=== PATIENT | male | born 1985 | race Caucasian/White ===

== ENCOUNTER 2017-04-16 11:19 | Inpatient (IN) | payer OTHER ==
[2017-04-16 11:43] LABS: APPEARANCE,URINE CLEAR; BILIRUBIN,URINE NEGATIVE (NEGATIVE); GLUCOSE, URINE >=500 mg/dL (NEGATIVE); KETONES,URINE 20 mg/dL (NEGATIVE); LEUKOCYTE ESTERASE,URINE NEGATIVE (NEGATIVE); NITRITE,URINE NEGATIVE (NEGATIVE); PROTEIN,URINE NEGATIVE (NEGATIVE); URINE SPECIFIC GRAVITY 1.022; UROBILINOGEN,URINE NEGATIVE mg/dL (<2.0)
[2017-04-16] MEDS ORDERED: NORMAL SALINE 1000 ML 1,000 ML IV ONE ×3 (11:50→14:32)
--- NOTE | 2017-04-16 11:56 | ER Document Report ---
ED Medical Screen (RME) - General Chief Complaint: Nausea/Vomiting Stated Complaint: CHEST PAIN Time Seen by Provider: 04/16/17 11:38 Mode of Arrival: Wheelchair Information source: Patient, Parent Notes: This is a 31-year-old male with multiple medical problems who presents with nausea vomiting and abdominal pain. He states that he is concerned he may be in DKA. He does have a history of insulin dependent diabetes. He also has a prior history of cardiomyopathy and was once on a cardiac transplant list with an EF of 13%. However he states that this has improved in his last EF per his report was 45% about 6 months ago. He has recently moved here and does not have a primary care physician. He reports nausea and vomiting for the past 4 days. His blood sugar has been high at home. He called the [facility] in [place] today and will instructed to present to the ER. I have greeted and performed a rapid initial assessment of this patient. A comprehensive ED assessment and evaluation of the patient, analysis of test results and completion of the medical decision making process will be conducted by additional ED providers. TRAVEL OUTSIDE OF THE [place] IN LAST 30 DAYS: No - Related Data Allergies/Adverse Reactions: No Known Allergies Allergy (Verified 04/16/17 11:23) Past Medical History Renal/ Medical History: Denies: Hx Peritoneal Dialysis Physical Exam - Vital signs Vitals: Temp Pulse Resp BP Pulse Ox 97.6 F 121 H 18 107/77 100 04/16/17 11:23 04/16/17 11:23 04/16/17 11:23 04/16/17 11:23 04/16/17 11:23 - General Notes: somewhat ill-appearing, conversant, - Respiratory Respiratory status: No respiratory distress Breath sounds: Normal. No: Rales, Rhonchi, Wheezing - Cardiovascular Rhythm: Tachycardia Heart sounds: S1 appreciated, S2 appreciated Murmur: No Course - Vital Signs Vital signs: Temp Pulse Resp BP Pulse Ox 97.6 F 121 H 18 107/77 100 04/16/17 11:23 04/16/17 11:23 04/16/17 11:23 04/16/17 11:23 04/16/17 11:23 - Laboratory Laboratory results interpreted by me: 04/16/17 11:25 Urine Glucose (UA) >=500 H Urine Ketones 20 H
[2017-04-16 12:35] LABS: VENOUS BLOOD BASE EXCESS 9.2 mmol/L; VENOUS BLOOD HCO3 34.9 mmol/L (20-32); VENOUS BLOOD PH 7.48 (7.30-7.42)
[2017-04-16 12:44] LABS: ABSOLUTE BASOPHILS # (AUTO) 0.1 10^3/uL (0.0-0.2); ABSOLUTE LYMPHOCYTES (AUTO) 1.6 10^3/uL (0.5-4.7); ABSOLUTE MONOCYTES (AUTO) 1.5 10^3/uL (0.1-1.4); ABSOLUTE NEUT (AUTO) 10.9 10^3/uL (1.7-8.2); BASOPHILS % (AUTO) 0.5 % (0-2); EOSINOPHILS % (AUTO) 0.1 % (0-6); HEMATOCRIT 43.4 % (37.9-51.0); HEMOGLOBIN 14.8 g/dL (13.5-17.0); LYMPHOCYTES % (AUTO) 11.6 % (13-45); MEAN CORPUSCULAR HEMOGLOBIN 31.2 pg (27.0-33.4); MEAN CORPUSCULAR HGB CONC 34.2 g/dL (32.0-36.0); MEAN CORPUSCULAR VOLUME 91 fl (80-97); MONOCYTES % (AUTO) 10.8 % (3-13); RED BLOOD COUNT 4.77 10^6/uL (4.35-5.55); RED CELL DISTRIBUTION WIDTH 12.5 % (11.5-14.0); WHITE BLOOD COUNT 14.1 10^3/uL (4.0-10.5)
--- NOTE | 2017-04-16 12:51 | ER Document Report ---
ED General - General Chief Complaint: Nausea/Vomiting Stated Complaint: CHEST PAIN Time Seen by Provider: 04/16/17 11:38 Mode of Arrival: Wheelchair Notes: Patient says he has been vomiting since Tuesday. History of insulin-dependent diabetes. Has been able to eat some chicken broth and crackers. He still vomiting today. Had a normal bowel movement this morning, however. Has pain in the right side of his abdomen since , but has had this previously. Denies fever, but has had chills. No prior abdominal surgeries. Patient has a history of congestive heart failure and is on carvedilol and lisinopril. Denies chest pain. TRAVEL OUTSIDE OF THE [place] IN LAST 30 DAYS: No - Related Data Allergies/Adverse Reactions: No Known Allergies Allergy (Verified 04/16/17 11:23) Past Medical History - General Information source: Patient, Parent - Social History Smoking Status: Unknown if Ever Smoked Cigarette use (# per day): No Chew tobacco use (# tins/day): No Frequency of alcohol use: None Family History: Reviewed & Not Pertinent Patient has suicidal ideation: No Patient has homicidal ideation: No - Past Medical History Cardiac Medical History: Reports: Hx Congestive Heart Failure Endocrine Medical History: Reports: Hx Diabetes Mellitus Type 1 Surgical Hx: Negative - Immunizations Hx Diphtheria, Pertussis, Tetanus Vaccination: Yes Review of Systems - Review of Systems Notes: REVIEW OF SYSTEMS: CONSTITUTIONAL : Denies fever but has had chills. EENT: Denies eye, ear, nose or mouth or throat pain or other symptoms. CARDIOVASCULAR: Denies chest pain. RESPIRATORY: Denies cough, chest congestion, or shortness of breath. GASTROINTESTINAL: Patient says he has some pain to the right side of his abdomen along with nausea and vomiting. No diarrhea. GENITOURINARY: Denies difficulty or painful urinating, blood in urine. MUSCULOSKELETAL: Denies back or neck pain. Denies joint pain or swelling. SKIN: Denies rash or skin lesions. NEUROLOGICAL: Denies LOC or altered mental status. Denies headache. Denies sensory loss or motor deficits. ALL OTHER SYSTEMS REVIEWED AND NEGATIVE. Physical Exam - Vital signs Vitals: Temp Pulse Resp BP Pulse Ox 97.6 F 121 H 18 107/77 100 04/16/17 11:23 04/16/17 11:23 04/16/17 11:23 04/16/17 11:23 04/16/17 11:23 Interpretation: Tachycardic - Notes Notes: PHYSICAL EXAMINATION: GENERAL: Well-appearing, in no acute distress. Heart rate 72 at bedside by me. By EKG, patient's heart rate is 80. HEAD: Atraumatic, normocephalic. ENT: oropharynx clear without exudates. Moist mucous membranes. NECK: Normal range of motion, supple. LUNGS: Breath sounds clear and equal bilaterally. HEART: Regular rate and rhythm without murmurs. ABDOMEN: Soft, nontender. Not really any tenderness in the right lower quadrant over McBurney's point. No guarding or rebound. No masses felt. Bowel sounds are present. BACK: No tenderness throughout entire back. EXTREMITIES: Normal range of motion without pain. NEUROLOGICAL: Normal speech, normal gait. Normal sensory, motor, and reflex exams. Awake, alert, and oriented x3. Cranial nerves normal. PSYCH: Normal mood, normal affect. SKIN: Warm, dry, no rashes. Course - Re-evaluation Re-evalutation: 04/16/17 14:21 Patient received 1 bolus of 1 L of normal saline followed by a second liter at 250 mL/h. Abnormal sodium and chloride and creatinine and BUN noted. Spoke with hospitalist on duty, Dr. Ferraro, who will admit the patient to telemetry. - Vital Signs Vital signs: Temp Pulse Resp BP Pulse Ox 98.5 F 93 18 119/85 100 04/16/17 16:58 04/16/17 16:58 04/16/17 16:58 04/16/17 16:58 04/16/17 16:58 - Laboratory Result Diagrams: 04/16/17 12:37 04/16/17 12:37 Laboratory results interpreted by me: 04/16/17 04/16/17 04/16/17 11:25 11:40 12:00 WBC Lymphocytes % Absolute Neutrophils Absolute Monocytes VBG pH 7.48 H VBG HCO3 34.9 H Sodium Chloride Anion Gap BUN Creatinine Est GFR ( Amer) Est GFR (Non-Af Amer) Glucose POC Glucose 344 H Urine Glucose (UA) >=500 H Urine Ketones 20 H 04/16/17 04/16/17 04/16/17 12:37 12:37 14:30 WBC 14.1 H Lymphocytes % 11.6 L Absolute Neutrophils 10.9 H Absolute Monocytes 1.5 H VBG pH VBG HCO3 Sodium 118.9 L* Chloride 70 L Anion Gap 20 H BUN 53 H Creatinine 1.69 H Est GFR ( Amer) 57 L Est GFR (Non-Af Amer) 47 L Glucose 361 H POC Glucose 328 H Urine Glucose (UA) Urine Ketones - Diagnostic Test Radiology reviewed: Image reviewed, Reports reviewed - Chest x-ray read by radiology showing left upper lobe changes consistent with prior infections or inflammatory process. Heart size is normal. - EKG Interpretation by Ne EKG shows normal: Sinus rhythm Rate: Normal Rhythm: NSR Additional EKG results interpreted by vt: 04/16/17 14:20 EKG shows no acute changes, only slight prolongation of the QT interval. Discharge - Discharge Clinical Impression: IDDM (insulin dependent diabetes mellitus), Hyponatremia, Renal insufficiency Vomiting Qualifiers: Vomiting type: unspecified Vomiting Intractability: unspecified Nausea presence : with nausea Qualified Code(s): R11.2 - Nausea with vomiting, unspecified Admitting Provider: Hospitalist Unit Admitted: Telemetry
[2017-04-16 13:07] LABS: ALANINE AMINOTRANSFERASE 28 U/L (21-72); ALBUMIN 4.5 g/dL (3.5-5.0); ALKALINE PHOSPHATASE 103 U/L (38-126); ASPARTATE AMINO TRANSFERASE 20 U/L (17-59); BILIRUBIN,DIRECT 0.4 mg/dL (0.0-0.4); BILIRUBIN,TOTAL 0.9 mg/dL (0.2-1.3); BLOOD UREA NITROGEN 53 mg/dL (7-20); CALCIUM 9.7 mg/dL (8.4-10.2); CARBON DIOXIDE 29 mmol/L (22-30); CHLORIDE 70 mmol/L (98-107); CREATININE RESULT 1.69 mg/dL (0.52-1.25); GLUCOSE 361 mg/dL (75-110); POTASSIUM 4.3 mmol/L (3.6-5.0)
--- NOTE | 2017-04-16 13:09 | RADIOLOGY REPORT (SQ) ---
EXAM DESCRIPTION: CHEST PA/LAT COMPLETED DATE/TIME: 04/16/2017 12:55 pm REASON FOR STUDY: vomiting, SOB, h/o CHF COMPARISON: None. EXAM PARAMETERS: NUMBER OF VIEWS: two views TECHNIQUE: Digital Frontal and Lateral radiographic views of the chest acquired. RADIATION DOSE: NA LIMITATIONS: none FINDINGS: LUNGS AND PLEURA: There appears be focal and 7 is change involving the left upper lobe. L ungs and pleural spaces otherwise clear. MEDIASTINUM AND HILAR STRUCTURES: No masses or contour abnormalities. HEART AND VASCULAR STRUCTURES: Heart normal size. No evidence for failure. BONES: No acute findings. HARDWARE: None in the chest. OTHER: No other significant finding. IMPRESSION: NO DEFINITE ACUTE CARDIOPULMONARY PROCESS. FOCAL EMPHYSEMATOUS CHANGE LEFT UPPER LOBE P RESUMABLY SEQUELA TO PRIOR INFECTIOUS/ INFLAMMATORY PROCESS. CORRELATE WITH CLINICAL HISTORY. TECHNICAL DOCUMENTATION: JOB ID: [id number] [employer]- All Rights Reserved
[2017-04-16 13:12] LABS: ANION GAP 20 (5-19)
[2017-04-16 13:13] LABS: SODIUM 118.9 mmol/L (137-145)
--- NOTE | 2017-04-16 15:30 | PDOC H&P ---
History of Present Illness Admission Date/PCP: 04/16/17 14:45 History of Present Illness: ERIN RM is a 31 year old white male with a past medical history significant for diabetes mellitus on long-term insulin, hypertension and congestive heart failure. He states that he is been throwing up since Tuesday. He does not recall being around anyone who has been sick. He states that he has had chronic nausea and vomiting for the last 1-2 years. He was seen for this in [place] at the [facility]. Ultimately he was referred out to the [facility] for further workup. The patient states he has a history of congestive heart failure with an EF of 19%. He was referred to [facility] medically optimized and given a LifeVest. He was then put on a heart transplant list. The workup there a diagnosis of heart failure but it is unknown to me as the underlying etiology. Patient states that eventually his EF increased and at last check it was 47%. He has been been able to come off of multiple medications. Fortunately he is left now with chronic nausea and vomiting that has not yet been worked up. He tells me that the [facility] was strict about what could be covered through insurance at the [facility]. Therefore his heart failure was worked up without evaluation of his chronic nausea and vomiting In the emergency room the patient's sodium was found to be 118 with a creatinine of 1.69 and blood sugar of 361. Given a liter of fluid and referred for admission. At the bedside the patient still feels nauseous and has recurrent belching. Past Medical History Cardiac Medical History: Reports: Congestive Heart Failure Endocrine Medical History: Reports: Diabetes Mellitus Type 1 Past Surgical History Past Surgical History: Reports: None Social History Information Source: Patient, Parent Smoking Status: Current Some Day Smoker Frequency of Alcohol Use: Occasional Drugs: Marijuana Hx Prescription Drug Abuse: No Past Social History Note: The patient is recently medically retired from the [employer] that he just graduated from college with a bachelor's degree in this. Smokes cigarettes a few times a year and uses marijuana about 2 times a week. He occasionally has wine he estimates about once a month. Fortunately the patient has been since December 2016. Family History Family History: Reviewed & Not Pertinent, Hypertension Parental Family History Reviewed: Yes Children Family History Reviewed: Yes Sibling(s) Family History Reviewed.: Yes Medication/Allergy Allergies/Adverse Reactions: No Known Allergies Allergy (Verified 04/16/17 11:23) Review of Systems Review of Systems: Systems is pertinent for that already mentioned in the HPI. In addition to this the patient has noted flakes of blood in his emesis. He also describes extreme of bowel habits to include diarrhea 1 day and extreme constipation the next. Denies fevers chills blood in the, urine blood in the stool, coughing up blood. He admits to weight loss when he is constantly vomiting. Physical Exam Vital Signs: Temp Pulse Resp BP Pulse Ox 97.6 F 121 H 23 H 107/77 97 04/16/17 11:23 04/16/17 11:23 04/16/17 13:33 04/16/17 11:23 04/16/17 13:33 Physical exam: In general: this a well-developed well-nourished appearing white male resting in bed currently in no acute distress HEENT: Normocephalic atraumatic. Trachea is midline. Sclera are anicteric. Mucous membranes. Heart: Regular rate and rhythm no murmurs rubs or gallops Lungs: Clear to auscultation bilaterally with equal rise and fall of the chest. Abdomen: Soft nontender nondistended. Active bowel sounds. Extremities: Clubbing cyanosis or edema. 2+ peripheral pulses. 5 out of 5 strength in the upper and lower extremities bilaterally. Neuro: Alert and oriented. Cranial nerves II through XII are specifically intact. Pupils are reactive. Results Impressions: Chest X-Ray 04/16/17 11:51 IMPRESSION: NO DEFINITE ACUTE CARDIOPULMONARY PROCESS. FOCAL EMPHYSEMATOUS CHANGE LEFT UPPER LOBE PRESUMABLY SEQUELA TO PRIOR INFECTIOUS/ INFLAMMATORY PROCESS. CORRELATE WITH CLINICAL HISTORY. Assessment & Plan - Diagnosis (1) Hyponatremia Plan: Hypovolemic hyponatremia. This is a result of prolonged nausea with vomiting. Continue normal saline solution resuscitation. Repeat chemistry in the morning (2) IDDM (insulin dependent diabetes mellitus) Plan: Controlled diabetes mellitus. The patient states his last hemoglobin A1c was 10. Insulin for now and monitor blood sugar checks. Adjust as appropriate (3) Vomiting Qualifiers: Vomiting type: unspecified Vomiting Intractability: unspecified Nausea presence: with nausea Qualified Code(s): R11.2 - Nausea with vomiting, unspecified Plan: Zofran as needed. I have concerns that this could be related to gastroparesis. Check a gastric outlet study. clear liquid diet. (4) Acute renal failure Plan: Secondary to dehydration. Continue resuscitative efforts. (5) Hypertension Plan: Lisinopril secondary to acute dehydration and renal failure. Coreg being verified. Resume as appropriate. - Time Time Spent: 30 to 50 Minutes - Inpatient Certification Medical Necessity: Need Close Monitoring Due to Risk of Patient Decompensation, Need For IV Fluids
[2017-04-16] MEDS ORDERED: ACETAMINOPHEN 650 MG SUPP.RECT PR PRN (15:31)
[2017-04-16] MEDS ORDERED: ONDANSETRON HCL INJ/PF 4 MG/2 ML SDV IV PRN (15:31)
[2017-04-16] MEDS ORDERED: GLUCAGON,HUMAN RECOMB 1 MG INJ IM PRN (15:40)
[2017-04-16] MEDS ORDERED: DEXTROSE 40% GEL 15 GM TUBE PO PRN ×2 (15:40)
[2017-04-16] MEDS ORDERED: DEXTROSE 50%-WATER 25 GM/50 ML DISP.SYRIN IV PRN ×2 (15:40)
[2017-04-16] MEDS ORDERED: PANTOPRAZOLE SODIUM 40 MG VIAL IV SCH (15:45)
[2017-04-16] MEDS ORDERED: FAMOTIDINE INJ/PF 20 MG/2 ML SDV IV ONE (16:00)
[2017-04-16] MEDS: METOCLOPRAMIDE HCL INJ/PF 10 MG/2 ML SDV IV SCH ×2 (17:21→21:33)
[2017-04-16] MEDS: POTASSI CL 20 MEQ/NS 1L 1,000 ML IV PRN (17:21)
[2017-04-16] MEDS: INSULIN REG, HUMAN 100 UNIT/ML 3 ML VIAL (PYX) SUBCUT PRN ×2 (17:33→21:33)
[2017-04-16] MEDS ORDERED: CARVEDILOL 6.25 MG TABLET PO SCH (21:15)
[2017-04-16] MEDS: TRAZODONE HCL 50 MG TABLET PO SCH (21:33)
[2017-04-16] MEDS: LISINOPRIL 10 MG TABLET PO SCH (23:20)
[2017-04-16] MEDS: INSULIN GLARGINE,HUM.REC.ANLOG 1,000 UNIT/10 ML UNIT SUBCUT SCH (23:21)
[2017-04-17] MEDS: POTASSI CL 20 MEQ/NS 1L 1,000 ML IV PRN ×2 (03:29→13:31)
[2017-04-17 05:19] LABS: ABSOLUTE MONOCYTES (AUTO) 1.1 10^3/uL (0.1-1.4); ABSOLUTE NEUT (AUTO) 5.3 10^3/uL (1.7-8.2); BASOPHILS % (AUTO) 0.1 % (0-2); EOSINOPHILS % (AUTO) 0.6 % (0-6); HEMATOCRIT 36.2 % (37.9-51.0); HGB HCT DIFFERENCE 1.3; LYMPHOCYTES % (AUTO) 24.1 % (13-45); MEAN CORPUSCULAR HEMOGLOBIN 31.3 pg (27.0-33.4); MEAN CORPUSCULAR HGB CONC 34.5 g/dL (32.0-36.0); MEAN CORPUSCULAR VOLUME 91 fl (80-97); MONOCYTES % (AUTO) 12.7 % (3-13); RED BLOOD COUNT 3.98 10^6/uL (4.35-5.55); RED CELL DISTRIBUTION WIDTH 12.7 % (11.5-14.0); SEGMENTED NEUTROPHILS % (AUTO) 62.5 % (42-78); WHITE BLOOD COUNT 8.5 10^3/uL (4.0-10.5)
[2017-04-17] MEDS: FAMOTIDINE INJ/PF 20 MG/2 ML SDV IV SCH ×2 (05:24→17:03)
[2017-04-17 05:35] LABS: HEMOGLOBIN 12.5 g/dL (13.5-17.0)
[2017-04-17 05:42] LABS: ANION GAP 11 (5-19); BLOOD UREA NITROGEN 36 mg/dL (7-20); CARBON DIOXIDE 27 mmol/L (22-30); CHLORIDE 88 mmol/L (98-107); CREATININE RESULT 1.27 mg/dL (0.52-1.25); GLUCOSE 223 mg/dL (75-110); MAGNESIUM 2.3 mg/dL (1.6-2.3); POTASSIUM 4.4 mmol/L (3.6-5.0); SODIUM 126.4 mmol/L (137-145)
[2017-04-17] MEDS: METOCLOPRAMIDE HCL INJ/PF 10 MG/2 ML SDV IV SCH ×4 (08:08→22:00)
[2017-04-17] MEDS: CARVEDILOL 6.25 MG TABLET PO SCH ×2 (08:08→17:03)
[2017-04-17] MEDS: LISINOPRIL 10 MG TABLET PO SCH ×2 (09:44→22:00)
[2017-04-17] MEDS ORDERED: (PENDING PHARMACY ID) (Lisinopril [Lisinopril] 20 MG) PO SCH (10:00)
--- NOTE | 2017-04-17 13:27 | PDOC PROGRESS REPORT ---
Subjective Progress Note for:: 04/17/17 Subjective:: This is a followup visit for intractable nausea and vomiting. The patient was seen at 0955 today. He said he was able to get some sleep overnight and only had one episode of vomiting this morning. He describes it as a small amount of emesis. He is tolerating clears but dosen't think he is ready to do more. Physical Exam Vital Signs: Temp Pulse Resp BP Pulse Ox 97.7 F 83 18 152/91 H 100 04/17/17 07:42 04/17/17 07:42 04/17/17 07:42 04/17/17 07:42 04/17/17 07:42 Intake & Output 04/16/17 04/17/17 04/18/17 06:59 06:59 06:59 Intake Total 1100 Balance 1100 Weight 70.2 kg Physical exam: In general: this a well-developed well-nourished appearing white male resting in bed currently in no acute distress Heart: Regular rate and rhythm no murmurs rubs or gallops Lungs: Clear to auscultation bilaterally with equal rise and fall of the chest. Abdomen: Soft nontender nondistended. Active bowel sounds. Extremities: Clubbing cyanosis or edema. 2+ peripheral pulses. Neuro: Alert and oriented. Cranial nerves II through XII are specifically intact. Results Laboratory Results: 04/17/17 04:44 04/17/17 04:44 04/17/17 04/17/17 04/17/17 04:44 04:44 04:44 WBC 8.5 RBC 3.98 L Hgb 12.5 L D Hct 36.2 L MCV 91 MCH 31.3 MCHC 34.5 RDW 12.7 Plt Count 211 Seg Neutrophils % 62.5 Lymphocytes % 24.1 Monocytes % 12.7 Eosinophils % 0.6 Basophils % 0.1 Absolute Neutrophils 5.3 Absolute Lymphocytes 2.0 Absolute Monocytes 1.1 Absolute Eosinophils 0.0 Absolute Basophils 0.0 Sodium 126.4 L Potassium 4.4 Chloride 88 L Carbon Dioxide 27 Anion Gap 11 BUN 36 H Creatinine 1.27 H Est GFR ( Amer) > 60 Est GFR (Non-Af Amer) > 60 Glucose 223 H Calcium 9.0 Magnesium 2.3 TSH 1.11 Impressions: Chest X-Ray 04/16/17 11:51 IMPRESSION: NO DEFINITE ACUTE CARDIOPULMONARY PROCESS. FOCAL EMPHYSEMATOUS CHANGE LEFT UPPER LOBE PRESUMABLY SEQUELA TO PRIOR INFECTIOUS/ INFLAMMATORY PROCESS. CORRELATE WITH CLINICAL HISTORY. Assessment & Plan - Diagnosis (1) Hyponatremia Plan: Hypovolemic hyponatremia. This is a result of prolonged nausea with vomiting. Continue normal saline solution resuscitation. Repeat chemistry in the morning. Currently his sodium is 125. (2) IDDM (insulin dependent diabetes mellitus) Plan: Uncontrolled diabetes mellitus. The patient states his last hemoglobin A1c was 10. Continue regular 5U insulin qAC. increase lantus to 30. Monitor (3) Vomiting Qualifiers: Vomiting type: unspecified Vomiting Intractability: unspecified Nausea presence: with nausea Qualified Code(s): R11.2 - Nausea with vomiting, unspecified Plan: Zofran as needed. I have concerns that this could be related to gastroparesis. Check a gastric outlet study. clear liquid diet. Continue Reglan scheduled (4) Acute renal failure Plan: Secondary to dehydration. Continue resuscitative efforts. Much improved. (5) Hypertension Plan: Continue Coreg and lisinopril for now. - Time Time Spent with patient: 15-24 minutes - Inpatient Certification Medical Necessity: Need For IV Fluids
[2017-04-17] MEDS: INSULIN REG, HUMAN 100 UNIT/ML 3 ML VIAL (PYX) SUBCUT SCH ×2 (13:28→17:00)
[2017-04-17] MEDS: INSULIN REG, HUMAN 100 UNIT/ML 3 ML VIAL (PYX) SUBCUT PRN ×3 (13:28→22:01)
[2017-04-17] MEDS: TRAZODONE HCL 50 MG TABLET PO SCH (22:00)
[2017-04-17] MEDS: INSULIN GLARGINE,HUM.REC.ANLOG 1,000 UNIT/10 ML UNIT SUBCUT SCH (22:01)
[2017-04-18] MEDS: POTASSI CL 20 MEQ/NS 1L 1,000 ML IV PRN (02:36)
[2017-04-18] MEDS: FAMOTIDINE INJ/PF 20 MG/2 ML SDV IV SCH ×2 (05:31→18:09)
[2017-04-18 06:38] LABS: ABSOLUTE EOSINOPHILS # (AUTO) 0.1 10^3/uL (0.0-0.6); ABSOLUTE LYMPHOCYTES (AUTO) 2.6 10^3/uL (0.5-4.7); ABSOLUTE MONOCYTES (AUTO) 0.8 10^3/uL (0.1-1.4); ABSOLUTE NEUT (AUTO) 3.9 10^3/uL (1.7-8.2); BASOPHILS % (AUTO) 0.1 % (0-2); EOSINOPHILS % (AUTO) 1.5 % (0-6); HEMATOCRIT 33.5 % (37.9-51.0); HEMOGLOBIN 11.5 g/dL (13.5-17.0); LYMPHOCYTES % (AUTO) 35.1 % (13-45); MEAN CORPUSCULAR HEMOGLOBIN 31.5 pg (27.0-33.4); MEAN CORPUSCULAR HGB CONC 34.3 g/dL (32.0-36.0); MEAN CORPUSCULAR VOLUME 92 fl (80-97); MONOCYTES % (AUTO) 10.2 % (3-13); RED BLOOD COUNT 3.65 10^6/uL (4.35-5.55); RED CELL DISTRIBUTION WIDTH 12.5 % (11.5-14.0); SEGMENTED NEUTROPHILS % (AUTO) 53.1 % (42-78); WHITE BLOOD COUNT 7.4 10^3/uL (4.0-10.5)
[2017-04-18 06:49] LABS: ANION GAP 9 (5-19); BLOOD UREA NITROGEN 23 mg/dL (7-20); CALCIUM 8.8 mg/dL (8.4-10.2); CARBON DIOXIDE 27 mmol/L (22-30); CHLORIDE 97 mmol/L (98-107); CREATININE RESULT 1.09 mg/dL (0.52-1.25); GLUCOSE 124 mg/dL (75-110); MAGNESIUM 2.2 mg/dL (1.6-2.3); SODIUM 132.7 mmol/L (137-145)
--- NOTE | 2017-04-18 09:48 | EKG REPORT ---
SEVERITY:- ABNORMAL ECG - SINUS RHYTHM PROLONGED QT INTERVAL : Confirmed by: Darryl Carmen 18-Apr-2017 09:47:30
[2017-04-18] MEDS: INSULIN REG, HUMAN 100 UNIT/ML 3 ML VIAL (PYX) SUBCUT SCH (14:27)
[2017-04-18] MEDS: CARVEDILOL 6.25 MG TABLET PO SCH (14:27)
[2017-04-18] MEDS: METOCLOPRAMIDE HCL INJ/PF 10 MG/2 ML SDV IV SCH ×2 (14:29→18:09)
[2017-04-18] MEDS: LISINOPRIL 10 MG TABLET PO SCH (14:41)
--- NOTE | 2017-04-18 15:52 | RADIOLOGY REPORT (SQ) ---
EXAM DESCRIPTION: NM GASTRIC EMPTYING STUDY COMPLETED DATE/TIME: 04/18/2017 1:29 pm REASON FOR STUDY: intractable vomiting COMPARISON: None. RADIONUCLIDE AND DOSE: 1.99 millicuries Tc-99m Sulfur Colloid. The route of agent administration: Oral. TECHNIQUE: Serial images acquired to 4 hours with each image recorded over a 30 minute time frame. I mage intensity values plotted with respect to time with linear regression algorithm. LIMITATIONS: None. FINDINGS: Patient was observed for 4 hours. Gastric emptying at 60 minutes was 16%. Gastric emptying at 90 minutes was 24%. Gastric emptying at 120 minutes was 32% Gastric emptying at 240 minutes was 64%. IMPRESSION: IMPAIRED GASTRIC EMPTYING. 24% EMPTYING AT 90 MINUTES AND 64% EMPTYING AT 240 MINUTES. TECHNICAL DOCUMENTATION: JOB ID: [id number] [employer]- All Rights Reserved
--- NOTE | 2017-04-18 18:02 | PDOC DISCHARGE SUMMARY ---
General - Admit/Disc Date/PCP Admission Date/Primary Care Provider: 04/16/17 15:31 Discharge Date: 04/18/17 - Discharge Diagnosis (1) Hyponatremia Summary: The patient's hyponatremia is largely due to hypovolemic hyponatremia. This is nearly resolved at discharge after copious IV fluids. (2) IDDM (insulin dependent diabetes mellitus) Summary: Hemoglobin A1c was greater than 11. Counseled as to management of his diabetes. Follow-up with his primary care provider next week. I recommended that he pursue use of an insulin pump to get him under better control. And to meet with an food handler. Adjustment in his Lantus to 31 units nightly as well as 5 units of regular insulin at mealtime and sliding scale insulin. Hold to continue to check his blood sugars before meals at bedtime, to record these measurements and take them with him to his next appointment. (3) Vomiting Summary: Greatly diminished. Much improved with the Reglan. Continue frequent small meals. (4) Acute renal failure Summary: very mild and secondary to dehydration. Resolved. (5) Hypertension Summary: Controlled. Continue lisinopril and carvedilol. (6) Diabetic gastroparesis Summary: Continue small frequent meals. Continue Reglan. Gastric empty study showed impaired emptying: Percent emptying at 90 minutes and 64% emptying at 240 minutes - Additional Information Resuscitation Status: Full Code Home Medications: Carvedilol [Coreg 6.25 mg Tablet] 6.25 mg PO BID 04/16/17 Insulin Aspart [Novolog Insulin (Aspart) 100 unit/mL] See Protocol SQ ASDIR PRN 04/16/17 Lisinopril 20 mg PO BID 04/16/17 Omeprazole Magnesium [Prilosec Otc] 40 mg PO DAILY 04/16/17 Insulin Glargine,Hum.rec.anlog [Lantus] 31 units SUBCUT QHS #1 vial 04/18/17 Insulin Regular, Human [Humulin R (Reg) Insulin 100 unit/mL] 5 unit SUBCUT AC # 1 vial 04/18/17 Metoclopramide HCl [Reglan] 5 mg PO AC #90 tablet 04/18/17 History of Present Illness History of Present Illness: ERIN RM is a 31 year old white male with a past medical history significant for diabetes mellitus on long-term insulin, hypertension and congestive heart failure. He states that he is been throwing up since Tuesday. He does not recall being around anyone who has been sick. He states that he has had chronic nausea and vomiting for the last 1-2 years. He was seen for this in [place] at the [facility]. Ultimately he was referred out to the [facility] for further workup. The patient states he has a history of congestive heart failure with an EF of 19%. He was referred to [facility] medically optimized and given a LifeVest. He was then put on a heart transplant list. The workup there a diagnosis of heart failure but it is unknown to me as the underlying etiology. Patient states that eventually his EF increased and at last check it was 47%. He has been been able to come off of multiple medications. Fortunately he is left now with chronic nausea and vomiting that has not yet been worked up. He tells me that the [facility] was strict about what could be covered through insurance at the [facility]. Therefore his heart failure was worked up without evaluation of his chronic nausea and vomiting In the emergency room the patient's sodium was found to be 118 with a creatinine of 1.69 and blood sugar of 361. Given a liter of fluid and referred for admission. At the bedside the patient still feels nauseous and has recurrent belching. Hospital Course Hospital Course: The patient was admitted to the hospital and given copious fluids. He did quite well with this with his sodium levels coming up into the 130s. Vomiting was greatly reduced. Had uncontrolled diabetes mellitus with a hemoglobin A1c greater than 11. He admitted that he was not faithful in checking his sugars. In part it was due to laziness. Some part it was due to grief and stress, as his just in December and he recently graduated from college. It Was suspected that the patient had gastroparesis. Therefore, he was sent to have a gastric emptying study started on Reglan. Gastric emptying study did reveal that he had delay in transit. I recommended that he eat frequent small meals a day and to continue the Reglan as an outpatient. We adjusted his insulin time that he was here. He will be discharged home on Lantus 31 units as well as mealtime insulin of 5 units and sliding scale insulin. The patient will have a follow-up appointment at the [facility] next week. The patient is felt to be fit for discharge. Physical Exam Vital Signs: Temp Pulse Resp BP Pulse Ox 98.0 F 73 14 142/86 H 100 04/18/17 07:40 04/18/17 07:40 04/18/17 07:40 04/18/17 07:40 04/18/17 07:40 Intake & Output 04/17/17 04/18/17 04/19/17 06:59 06:59 06:59 Intake Total 1100 3583 Output Total 1390 Balance 1100 2193 Weight 70.2 kg 71.8 kg Physical exam: In general: this a well-developed well-nourished appearing white male resting in bed currently in no acute distress Heart: Regular rate and rhythm no murmurs rubs or gallops Lungs: Clear to auscultation bilaterally with equal rise and fall of the chest. Abdomen: Soft nontender nondistended. Active bowel sounds. Extremities: Clubbing cyanosis or edema. 2+ peripheral pulses. Neuro: Alert and oriented. Cranial nerves II through XII are specifically intact. Results Laboratory Results: 04/18/17 05:34 04/18/17 05:34 04/18/17 04/18/17 05:34 05:34 WBC 7.4 RBC 3.65 L Hgb 11.5 L Hct 33.5 L MCV 92 MCH 31.5 MCHC 34.3 RDW 12.5 Plt Count 206 Seg Neutrophils % 53.1 Lymphocytes % 35.1 Monocytes % 10.2 Eosinophils % 1.5 Basophils % 0.1 Absolute Neutrophils 3.9 Absolute Lymphocytes 2.6 Absolute Monocytes 0.8 Absolute Eosinophils 0.1 Absolute Basophils 0.0 Sodium 132.7 L Potassium 4.0 Chloride 97 L Carbon Dioxide 27 Anion Gap 9 BUN 23 H Creatinine 1.09 Est GFR ( Amer) > 60 Est GFR (Non-Af Amer) > 60 Glucose 124 H Calcium 8.8 Magnesium 2.2 Impressions: Chest X-Ray 04/16/17 11:51 IMPRESSION: NO DEFINITE ACUTE CARDIOPULMONARY PROCESS. FOCAL EMPHYSEMATOUS CHANGE LEFT UPPER LOBE PRESUMABLY SEQUELA TO PRIOR INFECTIOUS/ INFLAMMATORY PROCESS. CORRELATE WITH CLINICAL HISTORY. Qualifiers PATEINT BEING DISCHARGED WITH ANY OF THE FOLLOWING DIAGNOSIS?: No
[2017-04-18 18:21] VITALS: BP 132/93
== END 2017-04-18 19:04 | disposition home or self-care (01) | DRG 641 ==
LOC: ER 11:19 → UNDOADMIN 14:45 → EH 14:45 → 5 16:50
PROVIDERS: ADMIT Hospitalist; ATTEND Hospitalist
DX: E87.1 Hypo-osmolality and hyponatremia (principal); N17.9 Acute kidney failure, unspecified; E86.0 Dehydration; I11.0 Hypertensive heart disease with heart failure; I50.9 Heart failure, unspecified; E10.43 Type 1 diabetes mellitus with diabetic autonomic (poly)neuropathy; E10.65 Type 1 diabetes mellitus with hyperglycemia; K31.84 Gastroparesis; F43.20 Adjustment disorder, unspecified; F17.210 Nicotine dependence, cigarettes, uncomplicated; F12.90 Cannabis use, unspecified, uncomplicated; Z79.899 Other long term (current) drug therapy; Z79.4 Long term (current) use of insulin; Z91.19 Patient's noncompliance with other medical treatment and regimen
CPT/HCPCS: 36415; 71020; 78264; 80048; 80053; 81001; 82803; 82962; 83036; 83735; 84443; 85025; 93005; 93010; 96360; 96361; 99285; A9541; J1815; J2765; J3480; J7030; S0028